=== PATIENT | female | born 1960 | race Caucasian/White ===

== ENCOUNTER → 2023-03-11 08:12 | Outpatient (REF) | payer OTHER, SELFPAY | LOC: DHVS 08:12 | PROVIDERS: ATTENDING PHYSICIAN Surgery Vascular Surgery; FAMILY PHYSICIAN Internal Medicine | DX: I87.1 Compression of vein (principal) | CPT/HCPCS: 93970; 93978 ==

== ENCOUNTER 2023-04-20 17:15 | Emergency (ER) | payer OTHER, SELFPAY ==
[2023-04-20 17:31] VITALS: BP 149/93
--- NOTE | 2023-04-20 17:57 | ED.GENMED ---
History of Present Illness
General
Chief Complaint: Head Injury
Source: patient
Exam Limitations: none
Time Seen by Provider: 04/20/23 17:53
Travel History
Have you had any contact with someone who has COVID-19?: No
Do you have any symptoms of coronavirus? Fever > 100 degrees, chills, cough, shortness of breath, sore throat, loss of taste or smell, muscle aches, or headache?: No
History of Present Illness
History of Present Illness:
62 year old female presents for head injury. She is on Xarelto. She stood up and hit her head on a metal bar. She denies any neck pain. No loss of conscious or vision change. She does have a headache. No other complaints at this time
Past History
Past History
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
ED Past Surgical History: Other (Iliac stent)
Social History
Tobacco: Non-smoker
Alcohol: None
Drug: None
Personal:
Living: with family
Employment: Employed
Family History
Family History: CAD
Phy Exam
Physical Exam
Physical Exam:
General: Well-appearing patient female no acute respiratory distress
HEENT: Normocephalic contusion noted to the superior scalp small underlying hematoma. Pupils equal round reactive to light
Neurologic exam normal gait alert and oriented x 3
Musculoskeletal exam: Cervical spine is nontender over the midline
Course
Orders/Labs/Results
Orders:
Orders
04/20/23 17:35
CT Head W/o Iv Contrast Urgent
Comment: headache
Reason For Exam: head injury today, on thinners
04/20/23 18:16
Acetaminophen [Tylenol] 650 mg PO NOW STA
Vital Signs
Initial and Last Documented VS:
Initial Vital Signs
Temp Pulse Resp BP Pulse Ox
98.8 F 105 18 149/93 98
04/20/23 17:31 04/20/23 17:31 04/20/23 17:31 04/20/23 17:31 04/20/23 17:31
Last Documented Vital Signs
Temp Pulse Resp BP Pulse Ox
98.8 F 105 18 149/93 98
04/20/23 17:31 04/20/23 17:31 04/20/23 17:31 04/20/23 17:31 04/20/23 17:31
MDM/Problems Addressed
Differential Diagnosis Includes:
Close head injury on Xarelto. Consider contusion of her hematoma versus intracranial hemorrhage. Patient does have a headache. Will order CT of head
*Critical Care Note
Total Time (30-74mins, 75-104mins- exclusive of procedures): Not Applicable
Update Note
Update Note:
CT of the head appears negative. Pending official report. Will likely discharge home with contusion
ED Attending Note
-
Portions of this chart may have been created with voice recognition software.� Occasional wrong word or��sound alike� substitutions may have occurred due to the inherent limitations of voice recognition software.
Discharge Plan
Departure
Patient Disposition: Home (Routine Discharge)
Date of Disposition: 04/20/23
Time of Disposition: 18:39
Patient with high blood pressure during this ER visit?: No
Discharge Problem:
Contusion
Instructions: Contusion (DC)
Prescriptions:
No Action
topiramate 200 MG tablet
200 mg PO BID
methylprednisolone [Medrol (Jorge)] 4 mg tablets,dose pack
See Rx Instructions .ROUTE .COMPLEX Qty: 21 0RF
Rx Instructions:
orally per package directions
Activity Restrictions/Additional Instructions:
You may apply ice to the sore spot. Take Tylenol if needed for pain. Return for worsening symptoms otherwise follow-up with family doctor
Interventions
Interventions:
*Risk Screen - Suicide Last Done: 04/20/23 17:43
*General Assessment Last Done: 04/20/23 17:43
*Neglect/Abuse Screening Last Done: 04/20/23 17:43
ED- Fall Risk Assessment Last Done: 04/20/23 18:45
*ED COVID-19 Vaccine History Last Done: 04/20/23 17:43
*Nursing Disposition Last Done: 04/20/23 18:45
ED- Neurological Assessment Last Done: 04/20/23 17:43
ED-Skin Assessment Last Done: 04/20/23 17:43
Discharge Date and Time
Discharge Date/Time: 04/20/23 18:46
[2023-04-20] MEDS: TYLENOL 650 MG PO (18:36)
== END 2023-04-20 18:46 | disposition home or self-care (01) ==
LOC: EMR 17:15
PROVIDERS: EMERGENCY PHYSICIAN Emergency Medicine; FAMILY PHYSICIAN Internal Medicine
DX: S00.03XA Contusion of scalp, initial encounter (principal); W22.09XA Striking against other stationary object, initial encounter
CPT/HCPCS: 99284; 70450

== ENCOUNTER 2023-05-11 06:08 | Day surgery (SDC) | payer OTHER, SELFPAY ==
[2023-05-11] VITALS (11 sets, daily range): BP systolic 93–137; BP diastolic 66–83; BMI 22.0
[2023-05-11] MEDS: CELEBREX 200 MG PO (06:45)
[2023-05-11] MEDS: TYLENOL 1000 MG PO (06:45)
[2023-05-11] MEDS: NORMOSOL-R 1000 IV (06:46)
[2023-05-11] MEDS: TRANSDERM-SCOP 1 PATCH TRANSDERM (07:09)
[2023-05-11] MEDS: DILAUDID 0.5 MG IV (09:10)
[2023-05-11] MEDS: DILAUDID 0.25 MG IV ×2 (09:30→09:42)
[2023-05-11] MEDS: BENADRYL 25 MG IV (10:14)
== END 2023-05-11 10:44 | disposition home or self-care (01) ==
LOC: SDS 06:08
PROVIDERS: ATTENDING PHYSICIAN Orthopaedic Surgery
DX: M18.11 Unilateral primary osteoarthritis of first carpometacarpal joint, right hand (principal)
CPT/HCPCS: 25447

== ENCOUNTER → 2023-09-08 07:46 | Outpatient (REF) | payer OTHER, SELFPAY | LOC: HWWDC 07:46 | PROVIDERS: ATTENDING PHYSICIAN Obstetrics & Gynecology; FAMILY PHYSICIAN Internal Medicine | DX: Z12.31 Encounter for screening mammogram for malignant neoplasm of breast (principal) | CPT/HCPCS: 77063; 77067 ==

== ENCOUNTER → 2023-09-14 10:57 | Outpatient (REF) | payer OTHER, SELFPAY | LOC: RAD 10:57 | PROVIDERS: ATTENDING PHYSICIAN Internal Medicine; FAMILY PHYSICIAN Internal Medicine | DX: M25.50 Pain in unspecified joint (principal); M25.60 Stiffness of unspecified joint, not elsewhere classified | CPT/HCPCS: 73130; 73630 ==